=== PATIENT | female | born 1965 | race Caucasian/White ===

== ENCOUNTER 2017-02-07 13:45 | Outpatient (CLI) | payer BC | END 2017-02-07 13:46 | disposition home or self-care (01) | LOC: ULT 13:45 | PROVIDERS: ATTEND Internal Medicine Medical Oncology | DX: Z51.11 Encounter for antineoplastic chemotherapy (principal); C50.012 Malignant neoplasm of nipple and areola, left female breast; Z79.899 Other long term (current) drug therapy | CPT/HCPCS: 93306 ==

== ENCOUNTER 2017-05-13 13:39 | Outpatient (CLI) | payer BC | END 2017-05-13 13:40 | disposition home or self-care (01) | LOC: ULT 13:39 | PROVIDERS: ATTEND Internal Medicine Medical Oncology | DX: Z51.11 Encounter for antineoplastic chemotherapy (principal); I34.0 Nonrheumatic mitral (valve) insufficiency; I07.1 Rheumatic tricuspid insufficiency | CPT/HCPCS: 93306 ==